=== PATIENT | female | born 1975 | race Caucasian/White ===

== ENCOUNTER → 2016-09-23 | Outpatient (CLI) | payer OTHER, BC ==
[~2016-09-23] MED LIST: AMIT50TA PO; ESOM20CA PO
[2016-09-23 09:26] LABS: PATH.CAST-FLAG NOT PRESENT; SPERM-FLAG NOT PRESENT; SRC-FLAG NOT PRESENT; XTAL-FLAG NOT PRESENT; YLC-FLAG NOT PRESENT
== END | disposition home or self-care (01) ==
LOC: STAR 08:16
PROVIDERS: ATTEND Urology
DX: Z01.818 Encounter for other preprocedural examination (principal); N39.3 Stress incontinence (female) (male)
CPT/HCPCS: 81001; 87086

== ENCOUNTER 2016-10-07 08:07 | Day surgery (SDC) | payer OTHER, BC ==
[~2016-10-07] VITALS: Ht 177.8 cm; Wt 73.0 kg
[~2016-10-07 08:07] MED LIST changes: +BACITRACIN 50,000 UNIT ONE; +BUPIVACAINE/PF-EPI 0.5% 1:200K ONE; +ESTROGENS CONJUGATED VAG CRM 0.625MG/1G, 30GM ONE; +VANCOMYCIN 1,000 MG ONE
[2016-10-07] MEDS ORDERED: LIDOCAINE 1%, 2ML ONE (09:18)
[2016-10-07 09:19] VITALS: BP 112/76
[2016-10-07] MEDS ORDERED: FENTANYL PF 250 MCG/5ML ONE (09:22)
[2016-10-07] MEDS ORDERED: MIDAZOLAM 1 MG/ML, 2ML ONE (09:23)
[2016-10-07] MEDS ORDERED: SCOPOLAMINE PATCH, 1.5MG PATCH.TD72 TD ONE (09:46)
[2016-10-07] MEDS ORDERED: ROCURONIUM 10 MG/ML ONE (10:05)
[2016-10-07] MEDS ORDERED: KETOROLAC 30 MG/1 ML ONE (10:05)
[2016-10-07] MEDS ORDERED: DEXAMETHASONE 4 MG/ML, 1ML ONE (10:05)
[2016-10-07] MEDS ORDERED: ONDANSETRON 2MG/ML, 2ML ONE ×2 (10:05→11:12)
[2016-10-07] MEDS ORDERED: PROPOFOL 10 MG/ML, 20ML ONE (10:05)
[2016-10-07] MEDS ORDERED: CEFAZOLIN 1,000 MG ONE (10:05)
[2016-10-07] MEDS ORDERED: SUCCINYLCHOLINE 20 MG/ML, 10ML ONE (10:05)
[2016-10-07] MEDS ORDERED: THROMBIN 5,000 UNIT VIAL TP ONE ×2 (10:37→10:47)
[2016-10-07] MEDS ORDERED: VANCOMYCIN 500 MG IVPB ONE (10:46)
[2016-10-07] MEDS ORDERED: BACITRACIN 50,000 UNIT IRRIG ONE (10:46)
[2016-10-07] MEDS ORDERED: PROMETHAZINE 25 MG/ML, 1ML IV PRN (11:00)
[2016-10-07] MEDS ORDERED: morphine SULFATE 10 MG/ML, 1ML IV PRN (11:00)
[2016-10-07] MEDS ORDERED: ACETAMINOPHEN 325 MG TABLET PO PRN (11:00)
[2016-10-07] MEDS ORDERED: FENTANYL PF 100 MCG/2ML IV PRN (11:00)
[2016-10-07] MEDS ORDERED: ONDANSETRON 2MG/ML, 2ML IVPush PRN (11:00)
[2016-10-07] MEDS ORDERED: OXYcodone 5 MG/5 ML ORAL.SOL UDC PO PRN (11:00)
[2016-10-07] MEDS ORDERED: ACETAMINOPHEN 650 MG/20.3 ML UDC ONE (11:12)
[2016-10-07] MEDS ORDERED: FENTANYL PF 100 MCG/2ML ONE (11:12)
[2016-10-07] MEDS ORDERED: OXYcodone 5 MG/5 ML ORAL.SOL UDC ONE (11:12)
== END 2016-10-07 13:35 | disposition home or self-care (01) ==
LOC: OUT 08:07
PROVIDERS: ATTEND Urology
DX: N39.3 Stress incontinence (female) (male) (principal); Z90.49 Acquired absence of other specified parts of digestive tract; Z87.440 Personal history of urinary (tract) infections; Z88.6 Allergy status to analgesic agent; Z91.018 Allergy to other foods
CPT/HCPCS: 57288; C1771; J0330; J0690; J1100; J1885; J2250; J2405; J2704; J3010; J3370